=== PATIENT | female | born 1985 | race Caucasian/White ===

== ENCOUNTER 2024-05-25 16:36 | Emergency (ER) | payer OTHER ==
[~2024-05-25] VITALS: Ht 170.2 cm; Wt 113.4 kg
[2024-05-25 16:59] VITALS: BP 129/86; PULSE 84; RESP 16; TEMP 98.6; O2SAT 98
[2024-05-25] MEDS ORDERED: OFLO5DRO4 LEFT EAR (19:52)
[2024-05-25] MEDS: MECLIZINE 12.5MG TABLET PO ONE (20:15)
== END 2024-05-25 20:16 | disposition home or self-care (01) ==
LOC: EDBD 16:36 → ER 16:36
DX: H60.92 Unspecified otitis externa, left ear (principal)
CPT/HCPCS: 99283; J8597

== ENCOUNTER 2024-10-04 18:36 | Emergency (ER) | payer OTHER ==
[~2024-10-04] VITALS: Ht 170.2 cm; Wt 113.0 kg
[~2024-10-04 18:36] MED LIST: OFLO5DRO4 LEFT EAR
[2024-10-04 18:39] VITALS: O2SAT 99
[2024-10-04 18:54] VITALS: TEMP 98.4
[2024-10-04 20:11] LABS: BASOPHILS % 0.4 % (0.0-2.0); CHLORIDE 107 mEq/L (98-107); DIFFERENTIAL COMMENT 0; HEMATOCRIT. 35.6 % (36.0-48.0); HEMOGLOBIN. 11.6 g/dL (12.0-16.0); LYMPHOCYTES % 19.8 % (20.0-50.0); MEAN CORPUSCULAR HGB CONC 32.5 g/dL (31.0-37.0); MONOCYTES % 5.7 % (2.0-8.0); NEUTROPHILS % 67.1 % (40.0-76.0); PLATELET 281 x1000/uL (130-400); POTASSIUM 3.7 mEq/L (3.5-5.1); RED BLOOD CELL COUNT 4.82 mill/uL (4.2-5.4); RED CELL DISTRIBUTION WIDTH 14.5 % (11.6-14.6); SODIUM 140 mEq/L (136-145); WHITE BLOOD COUNT 12.4 x1000/uL (4.5-11.0)
[2024-10-04 20:12] LABS: CARBON DIOXIDE 28 mEq/L (21-32)
[2024-10-04 20:13] LABS: CALCIUM 9.5 mg/dL (8.7-10.4)
[2024-10-04 20:17] LABS: CREATININE 0.7 mg/dL (0.6-1.0); GLUCOSE 108 mg/dL (70-105); UREA NITROGEN BLOOD 13 mg/dL (9-23)
[2024-10-04] MEDS: ALBUTEROL (0.083%) 2.5MG/3ML NEB HHN ONE (22:12)
[2024-10-04 22:13] VITALS: PULSE 94; RESP 20; O2SAT 99
[2024-10-04] MEDS ORDERED: ALBU18HF2 IH (22:28)
[2024-10-04] MEDS ORDERED: P50 PO (22:28)
[2024-10-04] MEDS ORDERED: IBUP-2029 MT (22:30)
[2024-10-04 22:43] VITALS: BP 129/83; PULSE 94; RESP 20
[2024-10-04] MEDS: IBUPROFEN 600MG TABLET PO ONE (22:43)
[2024-10-04] MEDS: PREDNISONE 20MG TABLET PO ONE (22:43)
== END 2024-10-04 22:58 | disposition home or self-care (01) ==
LOC: ER 18:36
DX: B34.9 Viral infection, unspecified (principal)
CPT/HCPCS: 80048; 85025; 36415; 71045; 94640; 99284; J7512; Z7610 ×3